=== PATIENT | male | born 1960 | race Caucasian/White ===

== ENCOUNTER → 2018-02-01 | Outpatient (CLI) | payer BC ==
--- NOTE | 2018-02-01 15:21 | Diagnostic Imaging Report ---
TECHNIQUE: Magnetic resonance imaging of the RIGHT foot was performed WITHOUT injected contrast. HISTORY: Right foot pain COMPARISON: None available. DISCUSSION: Soft tissue ulceration plantar to the hallux with adjacent bone marrow edema and T1 replacement. The remainder of the bone marrow signal is unremarkable. No soft tissue abscess. Atrophy of the foot musculature. 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 Signed by: Dr. Issa Morton M.D. on 02/01/2018 3:17 PM
== END ==
LOC: MRI 13:13
PROVIDERS: ATTEND Podiatrist Foot & Ankle Surgery
DX: M86.071 Acute hematogenous osteomyelitis, right ankle and foot (principal)

== ENCOUNTER → 2018-02-13 | Outpatient (CLI) | payer BC ==
[2018-02-13 10:12] LABS: INR 0.99; PARTIAL THROMBOPLASTIN TIME 25.2 seconds (23.8-35.5); PROTHROMBIN TIME 12.3 seconds (11.9-14.5)
[2018-02-13 10:17] LABS: BLOOD UREA NITROGEN 10 mg/dL (7-26); BUN/CREATININE RATIO 10 (6-25); EST GLOMERULAR FILTRATION RATE > 60 ML/MIN (60-)
--- NOTE | 2018-02-13 11:39 | Diagnostic Imaging Report ---
PROCEDURE: A single AP view of the chest. COMPARISON: None. INDICATIONS: POST RIGHT PICC LINE PLACEMENT FINDINGS: Lines/tubes: Right PICC in place with tip overlying the mid SVC. Lungs: Low lung volumes. No definite focal consolidation. Pleura: There is no pleural effusion or pneumothorax. Heart and mediastinum: The cardiac silhouette is unremarkable. Thickening of the right paratracheal stripe, accentuated by low lung volumes and slight rotation. Bones: No acute bony abnormality. IMPRESSION: Right PICC in place with tip overlying the mid/inferior SVC. No visible pneumothorax. Dictated by: Andrea Downing M.D. on 02/13/2018 at 11:41 Electronically approved by: Andrea Downing M.D. on 02/13/2018 at 11:41
== END ==
LOC: DX 09:33
PROVIDERS: ATTEND Internal Medicine Infectious Disease
DX: M86.171 Other acute osteomyelitis, right ankle and foot (principal)
CPT/HCPCS: 36415; 36569; 71045; 82565; 84520; 85049; 85610; 85730

== ENCOUNTER 2022-04-24 11:51 | Emergency (ER) | payer BC, MEDICARE ==
[~2022-04-24] VITALS: Ht 185.4 cm; Wt 104.3 kg
[2022-04-24 12:49] LABS: BASOPHILS # (AUTO) 0.1 (0.0-0.1); EOSINOPHILS # (AUTO) 0.3 (0.0-0.4); EOSINOPHILS % 3.2 % (0.0-6.0); HEMATOCRIT 35.5 % (38.2-49.6); HEMOGLOBIN 11.8 g/dL (14.0-18.0); LYMPHOCYTES # (AUTO) 1.9 (1.0-3.2); LYMPHOCYTES % 21.3 % (18.0-39.1); MEAN CORPUSCULAR HEMOGLOBIN 27.4 pg (28-32); MEAN CORPUSCULAR HGB CONC 33.2 g/dL (31-35); MEAN CORPUSCULAR VOLUME 82.6 fL (81-99); MONOCYTES # (AUTO) 0.7 (0.2-0.8); MONOCYTES % 7.4 % (4.4-11.3); NEUTROPHILS # (AUTO) 5.8 (2.1-6.9); NEUTROPHILS % 66.8 % (38.7-80.0); PLATELET COUNT 340 x10e3/uL (140-360); RED CELL DISTRIBUTION WIDTH 12.1 % (11.7-14.4)
[2022-04-24 13:08] LABS: ALBUMIN 3.2 g/dL (3.5-5.0); ALBUMIN/GLOBULIN RATIO 0.8 (0.8-2.0); ANION GAP 13.2 mmol/L (8-16); CALCIUM 8.2 mg/dL (8.4-10.2); CREATININE, SERUM 0.95 mg/dL (0.72-1.25); INR 0.92; POTASSIUM 4.2 mmol/L (3.5-5.1); PROTHROMBIN TIME 13.2 seconds (11.9-14.5)
[2022-04-24 13:09] LABS: PARTIAL THROMBOPLASTIN TIME 31.4 seconds (23.8-35.5)
[2022-04-24] MEDS ORDERED: DOXYCYCLINE HY100 MG PO (14:57)
== END 2022-04-24 16:43 | disposition home or self-care (01) ==
LOC: ER 12:15
DX: L03.115 Cellulitis of right lower limb (principal); M79.89 Other specified soft tissue disorders; E11.65 Type 2 diabetes mellitus with hyperglycemia; I10 Essential (primary) hypertension; Z20.822 Contact with and (suspected) exposure to COVID-19
CPT/HCPCS: 0223U; 36415; 80053; 85025; 85610; 85730; 93971; 99284